=== PATIENT | male | born 1950 | race Caucasian/White ===

== ENCOUNTER 2018-01-11 16:12 | Emergency (ER) | payer MEDICARE ==
[2018-01-11] MEDS ORDERED: Lidocaine 1% MPF* 2 ML VIAL INJ ONE ×2 (16:28→16:37)
[2018-01-11 16:29] VITALS: BP 165/98
[2018-01-11] MEDS ORDERED: Tetan/Diph/Pertus SYR(Tdap)* 0.5 ML SYR(BOOSTRIX) use SYR IM ONE (16:29)
--- NOTE | 2018-01-11 16:29 | ED ---
Laceration/Wound HPI - HPI Summary HPI Summary: 67-year-old male presents with left thumb laceration. He states that it got caught in a table saw. He is not sure if there is bony involvement. He denies any foreign body. Area continues to bleed. He is not on blood thinners. no numbness or tingling. unable to completely flex thumb at IP. laceration only on left thumb. he is right handed. unsure when last tetanus is. - History of Current Complaint Stated Complaint: THUMB LAC Pain Intensity: 4 - Allergy/Home Medications Allergies/Adverse Reactions: Allergies Allergy/AdvReac Type Severity Reaction Status Date / Time campril Allergy Unknown Uncoded 12/31/15 13:29 Reaction Details Home Medications: Home Medications Blood Pressure Medication 01/11/18 [History] amLODIPine TAB* [Norvasc 5 mg TAB*] 5 mg PO DAILY 01/11/18 [History Confirmed ] PMH/Surg Hx/FS Hx/Imm Hx Endocrine/Hematology History: Denies: Hx Diabetes Cardiovascular History: Reports: Hx Hypertension Denies: Hx Pacemaker/ICD History: Denies: Hx Renal Disease Sensory History: Denies: Hx Hearing Aid Psychiatric History: Denies: Hx Panic Disorder - Surgical History Surgery Procedure, Year, and Place: SURGERY FOR INFECTED RIGHT MIDDLE FINGER Infectious Disease History: No Infectious Disease History: Denies: Traveled Outside the [place] in Last 30 Days - Family History Known Family History: Positive: Hypertension - Social History Alcohol Use: Daily Alcohol Amount: 2 drinks per day Hx Substance Use: No Substance Use Type: Reports: None Hx Tobacco Use: Yes Smoking Status (MU): Former Smoker Review of Systems Negative: Fever Negative: Chest Pain Negative: Shortness Of Breath Positive: Other - left thumb laceration All Other Systems Reviewed And Are Negative: Yes Physical Exam Triage Information Reviewed: Yes Vital Signs On Initial Exam: Initial Vitals Temp Pulse Resp BP Pulse Ox 99.1 F 94 18 165/98 95 01/11/18 16:23 01/11/18 16:23 01/11/18 16:23 01/11/18 16:23 01/11/18 16:23 Vital Signs Reviewed: Yes Appearance: Positive: Well-Appearing Skin: Positive: Other - 3cm by 1 1/2cm by 1cm laceration of distal phalanx and 2cm by 1cm laceration of proximal phalanx of left thumb Head/Face: Positive: Normal Head/Face Inspection Eyes: Positive: Normal, Conjunctiva Clear Respiratory/Lung Sounds: Positive: Clear to Auscultation, Breath Sounds Present Cardiovascular: Positive: Normal, RRR Musculoskeletal: Positive: Limited @ - left thumb at IP joint unable to flex, Other - capillary refill<2 2 secs Neurological: Positive: Normal Psychiatric: Positive: Normal Procedures - Splinting Location: left thumb Splint: thumb spica Pre-Proc Neuro Vasc Exam: normal Post-Proc Neuro Vasc Exam: normal - Laceration/Wound Repair 1 Location: Other - left thumb Description: Irregular Anesthesia: Digital, 1.0% Length, Depth and Shape: 3cm by 1 1/2cm by 1cm Irrigated w/ Saline (ccs): 1,000 Closure: Single Layer Suture Type: Prolene - 4-0 Number of Sutures: 10 Layer Closure?: No Sterile Dressing Applied?: Yes - quinten spears coband 2 Location: Other - left thumb Description: Joint Proximity Anesthesia: Digital, 1.0% Length, Depth and Shape: 2cm by 1cm by 1/2cm Irrigated w/ Saline (ccs): 1,000 Laceration/Wound Explored: no foreign body removed Closure: Single Layer Suture Type: Prolene - 4-0 Number of Sutures: 6 Layer Closure?: No Sterile Dressing Applied?: Yes - quinten spears coband Diagnostics - Vital Signs Vital Signs Temp Pulse Resp BP Pulse Ox 01/11/18 16:23 99.1 F 94 18 165/98 95 - Laboratory Lab Statement: Any lab studies that have been ordered have been reviewed, and results considered in the medical decision making process. - Radiology thumb Xray Interpretation: Positive (See Comments) - IMPRESSION: Traumatic defects in the soft tissues. There is likely a traumatic defect in the volar aspect of the proximal end of the distal phalanx. Radiology Interpretation Completed By: Radiologist Laceration Repair Course/Dx - Course Course Of Treatment: 67-year-old male presents with left thumb laceration. He states that it got caught in a table saw. He is not sure if there is bony involvement. He denies any foreign body. Area continues to bleed. He is not on blood thinners. no numbness or tingling. unable to completely flex thumb at IP. laceration only on left thumb. he is right handed. unsure when last tetanus is. appears may have tendon laceration with depth and unable to completely flex. placed 10 sutures in 3cm by 1 1/2cm by 1cm laceration of distal phalanx thumb and 6 sutures in 2cm by 1cm laceration. cleaned area prior to suturing, gave tetanus and cefazolin IV. xray shows bony fragments. will have follow up with ortho and continue with keflex. placed in thumb spica splint. patient understand and agrees with plan. - Differential Dx Differental Diagnoses: Abrasion, Avulsion, Laceration - Clinical Impression Provider Diagnoses: Laceration of thumb, left, complicated Discharge - Sign-Out/Discharge Documenting (check all that apply): Discharge/Admit/Transfer - Discharge Plan Condition: Good Disposition: HOME Prescriptions: Cephalexin CAP* [Keflex CAP*] 500 mg PO BID #20 cap oxyCODONE/Acetamin 5/325 MG* [Percocet 5/325 TAB*] 1 tab PO Q6H PRN #12 tab MDD 4 PRN Reason: Pain Patient Education Materials: Care For Your Stitches (ED) Referrals: Azeem Singh MD [Primary Care Provider] - Jaycob Merino MD [Medical Doctor] - Additional Instructions: Take Tylenol or ibuprofen for pain every 6 hours as needed, use narcotic for break through pain as needed every 6 hours Take keflex twice a day for 10 days Keep area clean and dry Keep splint on area Follow up with ortho next week, call sunday for appointment with hand surgeon Return to ED or primary in 10-14 days to have sutures removed Return to ED if develop signs of infection such as fever, spreading redness, or pus or any new or worsening symptoms. - Billing Disposition and Condition Condition: GOOD Disposition: HOME
[2018-01-11] MEDS ORDERED: ceFAZolin 1 GM VIAL(*) 1 GM in NS 0.9% 50 ML* 50 ML IVPB ONE (16:57)
--- NOTE | 2018-01-11 17:03 | RAD ---
Indication: Thumb injury. 3 views of the thumb are reviewed. Soft tissue laceration is noted. There is likely a volar defect at the base of the proximal phalanx of the thumb with multiple bony fragments. IMPRESSION: Traumatic defects in the soft tissues. There is likely a traumatic defect in the volar aspect of the proximal end of the distal phalanx.
[2018-01-11] MEDS ORDERED: ceFAZolin 1 GM VIAL(*) ONE ×2 (17:34→17:35)
== END 2018-01-11 18:35 | disposition home or self-care (01) ==
LOC: UCEAST 16:12
DX: S61.012A Laceration without foreign body of left thumb without damage to nail, initial encounter (principal); S56.022A Laceration of flexor muscle, fascia and tendon of left thumb at forearm level, initial encounter; W31.2XXA Contact with powered woodworking and forming machines, initial encounter; Y93.89 Activity, other specified; Y92.9 Unspecified place or not applicable; Z23 Encounter for immunization; I10 Essential (primary) hypertension; Z88.8 Allergy status to other drugs, medicaments and biological substances; Z87.891 Personal history of nicotine dependence
CPT/HCPCS: 13132; 90715; 96374; 99213; G0463; J0690

== ENCOUNTER 2018-01-17 12:28 | Day surgery (SDC) | payer MEDICARE ==
[~2018-01-17 12:28] MED LIST: Buffered Lidocaine 0.9% SYRIN* 5 ML/SYR SYRINGE INTRADERM ONE; Sodium Citrate/Citric Acid* 15 ML UDC PO ONE
[2018-01-17] MEDS ORDERED: Sodium Citrate/Citric Acid* 15 ML UDC ONE (12:44)
[2018-01-17] MEDS ORDERED: ceFAZolin 2 GM PREMIX (*) 2 GM/50 ML BAG IVPB ONE (12:44)
[2018-01-17] MEDS ORDERED: Bupivacaine 0.25% SDV* 30 ML ONE ×2 (14:38→16:15)
[2018-01-17] MEDS ORDERED: VASOPRESSIN 20 UNITS/ML 1 ML VIAL ONE (15:03)
[2018-01-17] MEDS ORDERED: Midazolam* 1 MG/ML 5 ML VIAL (5 MG) ONE (15:27)
[2018-01-17] MEDS ORDERED: fentaNYL* 50 MCG/ML 2 ML VIAL (100 MCG VIAL) ONE ×2 (15:27→17:11)
[2018-01-17] MEDS ORDERED: Lidocaine 2% PF * 5 ML VIAL ONE (15:35)
[2018-01-17] MEDS ORDERED: Propofol* 10 MG/ML 20 ML BTL IV PUSH ONE ×3 (15:35→17:36)
[2018-01-17] MEDS ORDERED: fentaNYL* 50 MCG/ML 2 ML VIAL (100 MCG VIAL) IV PRN (17:53)
[2018-01-17] MEDS ORDERED: Ketorolac INJ* 30 MG/ML 1 ML VIAL IV PRN (17:53)
[2018-01-17] MEDS ORDERED: Ondansetron INJ* 2 MG/ML VIAL IV PRN (17:53)
[2018-01-17] MEDS ORDERED: Naloxone* 0.4 MG/ML 1 ML VIAL IV PRN (17:53)
[2018-01-17 18:59] VITALS: BP 148/83
--- NOTE | 2018-01-22 12:41 | OP ---
DATE OF OPERATION: 01/17/18 - LOCATED WITHIN [facility] DATE OF : 50 SURGEON: Jaycob Merino MD. ASSISTANTS: BOB Karimi, and BOB Ponce. An human resources office assistant was needed for the procedure to aid in positioning of the arm and retraction. ANESTHESIOLOGIST: Dr. Brambila. ANESTHESIA: General. PRE-OP DIAGNOSES: Left thumb table saw injury with likely flexor tendon laceration and probable digital nerve laceration. POST-OP DIAGNOSES: 1. Left thumb insertional flexor pollicis longus laceration. 2. Segmental left thumb ulnar digital nerve laceration with the nerve being lacerated on both at the level of the MCP joint and then just distal to the IP joint. 3. Left thumb radial digital nerve laceration just distal to the interphalangeal joint. OPERATIVE PROCEDURE: 1. Exploration of wound, left thumb. 2. Repair of segmental left thumb ulnar digital nerve laceration with proximal repair being done with an Avance nerve connector and the distal nerve repair being done with suturing directly with 9-0 nylon suture. 3. Repair of left thumb radial digital nerve. 4. Repair of left thumb flexor pollicis longus tendon laceration with 2 mini Mitek suture anchors. ESTIMATED BLOOD LOSS: 5 mL. COMPLICATIONS: None. INDICATIONS: Chace had severe table saw injury. He understood he had very severe injuries, told him we would explore the wound and repair the structures as needed. FINDINGS: See above and below. DESCRIPTION OF PROCEDURE: Chace was seen in the preoperative holding area. The correct site, side, and procedure were identified. We came back to the operating room where the arm was prepped and draped in the usual fashion. A time-out was performed. The arm was exsanguinated and the tourniquet inflated. I began by making an incision on the radial aspect of the thumb from his proximal transverse laceration connecting to his distal transverse laceration. A radially based flap was then raised right off of the fracture tendon sheath. There was a little bony defect in the base of the thumb distal phalanx. The FCL tendon was lacerated off and not visualized in the thumb. I immediately noted a segmental digital nerve laceration with the nerve that had been lacerated at both the proximal and distal wounds. The radial digital nerve was intact proximally but lacerated distally just past the trifurcation. I then extended my incision proximally in Vaibhav type fashion until I located the end of the FPL tendon back where it bisects the 2 heads of the FPB muscle and placed a 3-0 Ethibond whip stitch into the end of the tendon. I then was able to pass a suture passer through the tendon sheath and retrieved the suture and pulled it to retrieve the tendon back down into the sheath. I pinned it in place. I then turned by attention to the ulnar digital nerve. I used a popsicle stick and and an 11 blade ana laura back the ends of the nerves proximally and distally. I then brought in a 3 mm Avance nerve connector, the each end of the nerve was delivered into the nerve connector with a single 9-0 nylon mattress suture tied off over the connector leaving a gap of 2 to 3 mm. I then came distally on that same nerve. I took quite a bit of time, I was able to dissect things out to the extent possible. Ultimately there was a lot of damage from the table saw. I was able to find one large branch of the nerve distally and the remainder of branches were simply too destroyed. I cleaned up both ends of the nerve there again with the tongue depressor and the 11 blade. I was then able to perform a direct repair of both the intercalating nerve segment and the large branch I located distally. This was sutured together primarily with a couple of 9- 0 nylon epineurial simple sutures. I then came to my radial digital nerve. I dissected out again the nerve distally and proximally, again the laceration was distal to the trifurcation. I was able to locate another large branch distally. I prepared the ends of the nerve in a similar fashion with an 11 blade and then I was able to repair the radial digital nerve end-to-end with a couple of 9-0 nylon epineurial stitches. This was all done under 3.5x loupe magnification. With the nerves repaired, I went ahead and turned my attention to the tendon repair. Two mini Mitek suture anchors were placed in the footprint of the FPL tendon insertion on the distal phalanx. I then used a 2-[address] whip stitches up into the end of FPL tendon both radially and ulnarly. The pull suture was sewn into the tendon and pulled to bring the tendon down into complete apposition with the bony footprint. Both sutures were tied off and repair was very nicely secured back to the bone. At this point, I irrigated out the wound. Skin was closed with 4-0 nylon suture. Wounds were dressed with Xeroform, 4x4s, sterile Webril, and a thumb spica splint was applied out to the tip of the thumb. Tourniquet was deflated and the thumb pinked up immediately. He was then woken up and taken to recovery room in stable condition. [id number]/[facility] [place] #: [id number] JADA
== END 2018-01-17 19:03 | disposition home or self-care (01) ==
LOC: OREAST 12:28
PROVIDERS: ATTEND Orthopaedic Surgery Hand Surgery
DX: S66.022A Laceration of long flexor muscle, fascia and tendon of left thumb at wrist and hand level, initial encounter (principal); S64.32XA Injury of digital nerve of left thumb, initial encounter; W29.8XXA Contact with other powered hand tools and household machinery, initial encounter; Y93.89 Activity, other specified; Y92.9 Unspecified place or not applicable; Y99.9 Unspecified external cause status; I10 Essential (primary) hypertension; Z87.891 Personal history of nicotine dependence
CPT/HCPCS: A9270-GY; C1713; J0690; J2250; J2704; J3010